=== PATIENT | male | born 1940 | race Caucasian/White ===

== ENCOUNTER 2016-10-15 00:06 | Emergency (ER) | payer MEDICARE ==
[2016-10-15 00:06] VITALS: BP 163/79
[2016-10-15] MEDS ORDERED: GLYCERIN ADULT 1 SUPP.RECT. ONE (00:14)
[2016-10-15] MEDS ORDERED: SODIUM PHOSPHATES 19/7GM 133 ML ENEMA. ONE (00:14)
--- NOTE | 2016-10-15 00:17 | ED.ADGEN ---
Past History Past Medical History: Constipation, Other Adult General Chief Complaint Chief Complaint ".. I had this happen once before... I got so constipated.. I went to the pharmacy... and they told me to drink a bottle of mag citrate.. ".. " Now I desperate.. cramping so bad.. but I can't go..." HPI HPI Patient is a 76 year old male who presents with above hx and complaints of constipation. Pt. denies changes in meds or diet. Pt. has had one previous episode of severe constipation. Patient normally follows at for his care. Review of Systems Review of Systems Constitutional: Denies fever or chills [] Eyes: Denies change in visual acuity, redness, or eye pain [] HENT: Denies nasal congestion or sore throat [] Respiratory: Denies cough or shortness of breath [] Cardiovascular: No additional information not addressed in HPI [] GI: Complaints of cramping abdominal pain. and constipation. Pt. , nausea, vomiting, bloody stools or diarrhea [] : Denies dysuria or hematuria [] Musculoskeletal: Denies back pain or joint pain [] Integument: Denies rash or skin lesions [] Neurologic: Denies headache, focal weakness or sensory changes [] Endocrine: Denies polyuria or polydipsia [] Family History Family History Contributory Current Medications Current Medications Current Medications Medications (Trade) Dose Ordered Sig/Ghada Start Time Stop Time Status Last Admin Dose Admin Glycerin (Sani-Supp Adult) 1 supp 1X ONCE 10/15/16 00:30 10/15/16 01:10 DC Sodium Biphosphate/ Sodium Phosphate (Fleet Adult) 133 ml 1X ONCE 10/15/16 00:30 10/15/16 01:10 DC 10/15/16 00:30 133 ML Allergies Allergies Allergies Coded Allergies Type Severity Reaction Last Updated Verified Penicillins Allergy Unknown 10/15/16 Yes Physical Exam Physical Exam Constitutional: inacute distress, non-toxic appearance. [] HENT: Normocephalic, atraumatic, bilateral external ears normal, oropharynx moist, no oral exudates, nose normal. [] Eyes: PERRLA, EOMI, conjunctiva normal, no discharge. [] Neck: Normal range of motion, no tenderness, supple, no stridor. [] Cardiovascular:Heart rate regular rhythm, no murmur, PMI to the left Lungs & Thorax: Bilateral breath sounds clear to auscultation [] Abdomen: Bowel sounds normal, soft, generalized tenderness, no masses, no pulsatile masses. Distended. Hard stool impaction. Enlarge prostate. No true rebound. Skin: Warm, dry, no erythema, no rash. [] Back: No tenderness, no CVA tenderness. [] Extremities: No tenderness, no cyanosis, no clubbing, ROM intact, no edema. [] Neurologic: Alert and oriented X 3, normal motor function, normal sensory function, no focal deficits noted. [] No psoas. Arthritic changes. Psychologic: Affect anxious, judgement normal, mood normal. [] Current Patient Data Vital Signs Vital Signs Date Time Temp Pulse Resp B/P Pulse Ox O2 Delivery O2 Flow Rate FiO2 10/15/16 00:06 97.6 67 18 100 Room Air EKG EKG [] Radiology/Procedures Radiology/Procedures [] Course & Med Decision Making Course & Med Decision Making Pertinent Labs and Imaging studies reviewed. (See chart for details) Procedure note- digital disimpaction - Pt. hard impaction broken up and Fleet enema applied. Patient was unable to have a large stool with marked relief of his symptoms. Patient follow-up primary care. Patient to stay on clear fluid diet until all symptom resolve. Patient return if any concerns. [] Final Impression Final Impression 1. Constipation [] Problems: Dragon Disclaimer Dragon Disclaimer This electronic medical record was generated, in whole or in part, using a voice recognition dictation system. SADIA HONG MD Oct 15, 2016 00:17
[2016-10-15] MEDS ORDERED: SODIUM PHOSPHATES 19/7GM 133 ML ENEMA. PR ONE (00:30)
[2016-10-15] MEDS ORDERED: GLYCERIN ADULT 1 SUPP.RECT. PR ONE (00:30)
== END 2016-10-15 00:45 | disposition home or self-care (01) ==
LOC: ER 00:06
DX: K59.00 Constipation, unspecified (principal); Z88.0 Allergy status to penicillin
CPT/HCPCS: 99282; 99284

== ENCOUNTER 2018-11-24 06:32 | Emergency (ER) | payer MEDICARE ==
[~2018-11-24] VITALS: Ht 177.8 cm; Wt 91.7 kg
--- NOTE | 2018-11-24 06:57 | PHYS DOC ---
Past History Past Medical History: Constipation, Other Past Surgical History: Coronary Bypass Surgery Smoking: Quit Greater Than 1 Year Alcohol Use: None Drug Use: None Adult General Chief Complaint Chief Complaint: COUGH HPI HPI Patient is a [78-year-old male who presents with a cough. This has been present for the past several days. Became worse with laying down last night. Notes these had nasal congestion. He is also been exposed to friends who have been recently diagnosed with pneumonia. Patient denies any fever or shortness of breath. Reports that the cough is mild when sitting up, and worse with laying down. Productive of yellow tinged sputum. No blood in the sputum. No recent travel. No leg swelling. No chest pain or palpitations.[] Review of Systems Review of Systems Constitutional: Denies fever or chills [] Eyes: Denies change in visual acuity, redness, or eye pain [] HENT: Denies nasal congestion or sore throat [] Respiratory: Denies shortness of breath , see history of present illness[] Cardiovascular: No chest pain or palpitations[] GI: Denies abdominal pain, nausea, vomiting, bloody stools or diarrhea [] : Denies dysuria or hematuria [] Musculoskeletal: Denies back pain or joint pain [] Integument: Denies rash or skin lesions [] Neurologic: Denies headache, focal weakness or sensory changes [] Endocrine: Denies polyuria or polydipsia [] All other systems were reviewed and found to be within normal limits, except as documented in this note. Allergies Allergies Allergies Coded Allergies Type Severity Reaction Last Updated Verified Penicillins Allergy Unknown 10/15/16 Yes Physical Exam Physical Exam Constitutional: Well developed, well nourished, no acute distress, non-toxic appearance. [] HENT: Normocephalic, atraumatic, bilateral external ears normal, oropharynx moist, posterior pharyngeal streaking is present, no sinus tenderness, no oral exudates, nose normal. [] Eyes: PERRLA, EOMI, conjunctiva normal, no discharge. [] Neck: Normal range of motion, no tenderness, supple, no stridor. [] Cardiovascular:Heart rate regular rhythm, no murmur [] Lungs & Thorax: Bilateral breath sounds clear to auscultation [] Abdomen: Bowel sounds normal, soft, no tenderness, no masses, no pulsatile masses. [] Skin: Warm, dry, no erythema, no rash. [] Back: No tenderness, no CVA tenderness. [] Extremities: No tenderness, no cyanosis, no clubbing, ROM intact, no edema. [] Neurologic: Alert and oriented X 3, normal motor function, normal sensory function, no focal deficits noted. [] Psychologic: Affect normal, judgement normal, mood normal. [] EKG EKG [] Radiology/Procedures Radiology/Procedures CHEST PA LATERAL History: PRODUCTIVE COUGH TIMES 3 DAYS Comparison: None. Findings: Sternal wires [place] clips are present. The cardiomediastinal silhouette is normal. Pulmonary vasculature is normal. The lungs are clear. No pleural effusion or pneumothorax is seen. There is no acute bone abnormality. IMPRESSION: No acute cardiopulmonary process. [] Course & Med Decision Making Course & Med Decision Making Pertinent Labs and Imaging studies reviewed. (See chart for details) Medical decision making: There is no evidence of pneumonia, pneumothorax, nor systemic toxicity. No evidence of congestive heart failure.[] Dragon Disclaimer Dragon Disclaimer This electronic medical record was generated, in whole or in part, using a voice recognition dictation system. Departure Departure: Impression: Primary Impression: Upper respiratory infection Additional Impression: Cough Disposition: 01 HOME, SELF-CARE Condition: IMPROVED Referrals: PCP,NO (PCP) Patient Instructions: Cough, Adult, Upper Respiratory Infection, Adult Additional Instructions: Drink plenty of fluids. Follow-up with your regular doctor in 2 days. Take medication as prescribed. Return to the ER if worsening cough, difficulty breathing, you develop a fever of more than 101, or any other concerns. Scripts Benzonatate (TESSALON PERLE) 100 Mg Capsule 1 CAP PO TID for cough, #30 CAP Prov: CROW BENAVIDEZ DO 11/24/18 D-Methorphan Hb/Prometh Hcl (PROMETHAZINE-DM SYRUP) 118 Ml Syrup 5 ML PO PRN Q4HRS for CONGESTION, #120 ML Prov: CROW BENAVIDEZ DO 11/24/18 Problem Qualifiers Primary Impression: Upper respiratory infection URI type: unspecified URI Qualified Codes: J06.9 - Acute upper respiratory infection, unspecified CROW BENAVIDEZ DO Nov 24, 2018 06:57
--- NOTE | 2018-11-24 07:43 | RAD ---
CHEST PA LATERAL History: PRODUCTIVE COUGH TIMES 3 DAYS Comparison: None. Findings: Sternal wires [place] clips are present. The cardiomediastinal silhouette is normal. Pulmonary vasculature is normal. The lungs are clear. No pleural effusion or pneumothorax is seen. There is no acute bone abnormality. IMPRESSION: No acute cardiopulmonary process. Electronically signed by: Oswaldo Pham MD (11/24/2018 7:41 AM) [facility]
[2018-11-24 07:46] VITALS: BP 112/66
[2018-11-24] MEDS ORDERED: D-ME118S2 PO (08:00)
[2018-11-24] MEDS ORDERED: BENZ100C PO (08:00)
== END 2018-11-24 08:07 | disposition home or self-care (01) ==
LOC: ER 06:32
DX: J06.9 Acute upper respiratory infection, unspecified (principal); Z87.891 Personal history of nicotine dependence; Z95.1 Presence of aortocoronary bypass graft; Z88.0 Allergy status to penicillin
CPT/HCPCS: 71046; 99284

== ENCOUNTER → 2020-05-08 | Emergency (ER) | payer MEDICARE ==
[~2020-05-08] MED LIST: BENZ100C PO; PROM118S10 PO
== END | disposition left against medical advice (07) ==
LOC: ER 16:13
DX: K59.00 Constipation, unspecified (principal); Z53.21 Procedure and treatment not carried out due to patient leaving prior to being seen by health care provider